=== PATIENT | male | born 1945 | race African-American/Black ===

== ENCOUNTER 2022-03-23 21:52 | Inpatient (IN) ==
[2022-03-23] MEDS ORDERED: SODIUM CHLORIDE 0.9% 500 ML IV STA (22:17)
[2022-03-23 23:22] LABS: Bilirubin,Total 0.7 MG/DL (0.20-1.00); Calcium 9.4 MG/DL (8.5-10.1); Osmolality,Calculated 285.1 MOS/KG (273-304); Potassium 4.6 MMOL/L (3.5-5.1); Total Protein 7.3 G/DL (6.4-8.2)
[2022-03-24 00:20] LABS: Bilirubin,Urine Negative (Negative); Blood, Urine Small mg/dL (Negative); Glucose,Urine (UA) Negative (Negative); Ketones,Urine Negative (Negative); Mucus,Urine Occasional /LPF (Occasional); Nitrite,Urine Negative (Negative); Protein,Urine 100 mg/dL (Negative); RBC,Urine 1 /HPF (0-4); Squamous Epithelial Cell,Urine Occasional /HPF (0-10); Urine Appearance Clear (Clear); Urine Color Yellow (Yellow); Urine Specific Gravity 1.025 (1.001-1.035)
[2022-03-24] MEDS ORDERED: SODIUM CHLORIDE 0.9% 1,000 ML IV STA (00:20)
[2022-03-24 00:21] LABS: Urine Urobilinogen 0.2 eU/dL (<2.0)
[2022-03-24 00:38] LABS: Basophils # 0.1 10*3/uL (0.0-0.2); Basophils % 0.5 % (0.0-0.8); Eosinophils % 0.1 % (0.00-10.9); Hematocrit 31.4 VOL% (42.0-52.0); Hemoglobin 10.2 GM/DL (14.0-18.0); Immature Granulocytes % 1.7 %; Immature Granulocytes Absolute 0.22 #; Lymphocytes # 1.4 10*3/uL (1.4-4.0); Lymphocytes % 10.6 % (21.2-54.2); Mean Corpuscular HGB Conc 32.5 GM/DL (32-36); Mean Corpuscular Volume 99.1 FL (87-102); Mean Platelet Volume 12.5 FL (9.6-12.0); Monocytes # 1.3 10*3/uL (0.11-0.8); Monocytes % 9.8 % (1.7-12.7); Neutrophils % 77.3 % (38.7-73.9); Platelet Count 157 T/CUMM (130-400); Red Blood Count 3.17 MC/CUMM (3.8-5.5); White Blood Count 12.9 T/CUMM (4-12)
[2022-03-24] MEDS ORDERED: ENOXAPARIN 100 MG/ML SYRINGE SUBCUT STA (01:09)
[2022-03-24] MEDS ORDERED: ONDANSETRON 4 MG/2 ML VIAL IV PRN (02:44)
[2022-03-24] MEDS ORDERED: ACETAMINOPHEN 325 MG TABLET PO PRN (02:44)
[2022-03-24] MEDS: SODIUM CHLORIDE 0.9% 1,000 ML IV SCH ×2 (03:30→17:53)
[2022-03-24 05:11] LABS: Risk Ratio 2.26; VLDL Cholesterol 18.2 MG/DL
[2022-03-24] MEDS: PANTOPRAZOLE 40 MG TABLET PO SCH (11:06)
[2022-03-24] MEDS: DOCUSATE SODIUM 100 MG CAPSULE PO SCH ×2 (11:06→21:37)
[2022-03-24] MEDS: ASPIRIN EC 81 MG TABLET PO SCH (17:51)
[2022-03-24] MEDS ORDERED: methylPREDNISolone SOD SUC 40 MG/1 ML VIAL IV SCH (23:00)
[2022-03-24] MEDS: AZITHROMYCIN INJ 500 MG in SODIUM CHLORIDE 0.9% 250 ML IV SCH (23:21)
[2022-03-25] MEDS: cefTRIAXone 1,000 MG in SODIUM CHLORIDE 0.9% 100 ML IV SCH (02:19)
[2022-03-25] MEDS: ENOXAPARIN 100 MG/ML SYRINGE SUBCUT SCH (02:20)
[2022-03-25] MEDS: SODIUM CHLORIDE 0.9% 1,000 ML IV SCH ×2 (04:20→16:14)
[2022-03-25 06:31] LABS: Basophils # 0.1 10*3/uL (0.0-0.2); Basophils % 0.6 % (0.0-0.8); Eosinophils # 0.1 10*3/uL (0.0-0.87); Eosinophils % 0.6 % (0.00-10.9); Immature Granulocytes % 0.4 %; Immature Granulocytes Absolute 0.03 #; Lymphocytes # 1.5 10*3/uL (1.4-4.0); Lymphocytes % 18.8 % (21.2-54.2); Mean Corpuscular HGB Conc 32.4 GM/DL (32-36); Mean Corpuscular Volume 99.1 FL (87-102); Mean Platelet Volume 12.7 FL (9.6-12.0); Monocytes # 0.3 10*3/uL (0.11-0.8); Monocytes % 3.4 % (1.7-12.7); Neutrophils % 76.2 % (38.7-73.9); Platelet Count 162 T/CUMM (130-400); Red Blood Count 3.43 MC/CUMM (3.8-5.5); Red Cell Distribution Width 14.2 % (9.3-17.3); White Blood Count 8.2 T/CUMM (4-12)
[2022-03-25 06:44] LABS: Albumin 3.2 G/DL (3.4-5.0); Bilirubin,Total 0.4 MG/DL (0.20-1.00); Calcium 8.9 MG/DL (8.5-10.1); Osmolality,Calculated 282.5 MOS/KG (273-304); Potassium 4.5 MMOL/L (3.5-5.1); Total Protein 6.8 G/DL (6.4-8.2)
[2022-03-25] MEDS ORDERED: amLODIPine 5 MG TABLET PO SCH (09:00)
[2022-03-25] MEDS: amLODIPine 10 MG TABLET PO SCH (11:36)
[2022-03-25] MEDS: DOCUSATE SODIUM 100 MG CAPSULE PO SCH ×2 (11:36→21:23)
[2022-03-25] MEDS: carvediloL 12.5 MG TABLET PO SCH ×3 (11:36→21:23)
[2022-03-25] MEDS: ASPIRIN EC 81 MG TABLET PO SCH (11:36)
[2022-03-25] MEDS: PANTOPRAZOLE 40 MG TABLET PO SCH (11:36)
[2022-03-25] MEDS: methylPREDNISolone SOD SUC 40 MG/1 ML VIAL IV SCH ×2 (11:37→16:15)
[2022-03-25] MEDS: ROSUVASTATIN 20 MG TABLET PO SCH (12:48)
[2022-03-25] MEDS: FENOFIBRATE 160 MG TABLET PO SCH (12:48)
[2022-03-25] MEDS: BENZONATATE 100 MG CAPSULE PO SCH (21:23)
[2022-03-26] MEDS: AZITHROMYCIN INJ 500 MG in SODIUM CHLORIDE 0.9% 250 ML IV SCH ×2 (00:13→22:55)
[2022-03-26] MEDS: SODIUM CHLORIDE 0.9% 1,000 ML IV SCH ×3 (00:14→20:56)
[2022-03-26] MEDS: methylPREDNISolone SOD SUC 40 MG/1 ML VIAL IV SCH ×2 (00:15→09:10)
[2022-03-26] MEDS: ENOXAPARIN 100 MG/ML SYRINGE SUBCUT SCH (02:15)
[2022-03-26] MEDS: cefTRIAXone 1,000 MG in SODIUM CHLORIDE 0.9% 100 ML IV SCH (02:15)
[2022-03-26 05:48] LABS: Basophils % 0.1 % (0.0-0.8); Hematocrit 33.5 VOL% (42.0-52.0); Hemoglobin 10.8 GM/DL (14.0-18.0); Immature Granulocytes % 0.8 %; Immature Granulocytes Absolute 0.17 #; Lymphocytes # 1.9 10*3/uL (1.4-4.0); Lymphocytes % 8.9 % (21.2-54.2); Mean Corpuscular HGB Conc 32.2 GM/DL (32-36); Mean Corpuscular Volume 97.7 FL (87-102); Mean Platelet Volume 12.2 FL (9.6-12.0); Monocytes # 0.7 10*3/uL (0.11-0.8); Monocytes % 3.4 % (1.7-12.7); Neutrophils % 86.8 % (38.7-73.9); Platelet Count 165 T/CUMM (130-400); Red Blood Count 3.43 MC/CUMM (3.8-5.5); Red Cell Distribution Width 13.8 % (9.3-17.3); White Blood Count 21.2 T/CUMM (4-12)
[2022-03-26 05:56] LABS: Calcium 8.4 MG/DL (8.5-10.1); Osmolality,Calculated 289.1 MOS/KG (273-304); Potassium 4.3 MMOL/L (3.5-5.1)
[2022-03-26 06:28] LABS: Lymphocytes 3 % (20-55); Platelet Estimate Adequate; Total Cells Counted 100
[2022-03-26] MEDS: FENOFIBRATE 160 MG TABLET PO SCH (09:10)
[2022-03-26] MEDS: PANTOPRAZOLE 40 MG TABLET PO SCH (09:10)
[2022-03-26] MEDS: ASPIRIN EC 81 MG TABLET PO SCH (09:10)
[2022-03-26] MEDS: DOCUSATE SODIUM 100 MG CAPSULE PO SCH ×2 (09:10→20:55)
[2022-03-26] MEDS: amLODIPine 10 MG TABLET PO SCH (09:10)
[2022-03-26] MEDS: ROSUVASTATIN 20 MG TABLET PO SCH (09:10)
[2022-03-26] MEDS: carvediloL 12.5 MG TABLET PO SCH ×2 (09:10→20:55)
[2022-03-26] MEDS: BENZONATATE 100 MG CAPSULE PO SCH ×3 (09:10→20:55)
[2022-03-26] MEDS: FLUTICASONE 50 MCG NASAL SPRAY 16 GM BOTTLE BOTH NARES SCH (09:34)
[2022-03-26] MEDS ORDERED: methylPREDNISolone SOD SUC 40 MG/1 ML VIAL IV SCH (17:00)
[2022-03-26] MEDS: TAMSULOSIN 0.4 MG CAPSULE PO SCH (20:55)
[2022-03-27] MEDS: cefTRIAXone 1,000 MG in SODIUM CHLORIDE 0.9% 100 ML IV SCH (01:31)
[2022-03-27] MEDS: ENOXAPARIN 100 MG/ML SYRINGE SUBCUT SCH (01:32)
[2022-03-27] MEDS: methylPREDNISolone SOD SUC 40 MG/1 ML VIAL IV SCH ×2 (05:12→17:00)
[2022-03-27 06:09] LABS: Basophils % 0.1 % (0.0-0.8); Eosinophils % 0.1 % (0.00-10.9); Hematocrit 31.4 VOL% (42.0-52.0); Immature Granulocytes % 0.4 %; Immature Granulocytes Absolute 0.08 #; Lymphocytes % 10.2 % (21.2-54.2); Mean Corpuscular HGB Conc 31.8 GM/DL (32-36); Mean Corpuscular Volume 98.1 FL (87-102); Mean Platelet Volume 12.6 FL (9.6-12.0); Monocytes # 0.8 10*3/uL (0.11-0.8); Monocytes % 4.1 % (1.7-12.7); Neutrophils % 85.1 % (38.7-73.9); Platelet Count 155 T/CUMM (130-400); Red Cell Distribution Width 13.9 % (9.3-17.3); White Blood Count 19.4 T/CUMM (4-12)
[2022-03-27 06:27] LABS: Calcium 8.1 MG/DL (8.5-10.1); Potassium 4.2 MMOL/L (3.5-5.1)
[2022-03-27 06:43] LABS: Anisocytosis 1+; Band Neutrophils 7 % (0-10); Burr Cells Few; Lymphocytes 10 % (20-55); Platelet Estimate Normal; Total Cells Counted 100
[2022-03-27 06:44] LABS: Macrocytosis Slight
[2022-03-27] MEDS: DOCUSATE SODIUM 100 MG CAPSULE PO SCH ×2 (08:11→20:25)
[2022-03-27] MEDS: carvediloL 12.5 MG TABLET PO SCH ×2 (08:11→20:25)
[2022-03-27] MEDS: FENOFIBRATE 160 MG TABLET PO SCH (08:11)
[2022-03-27] MEDS: PANTOPRAZOLE 40 MG TABLET PO SCH (08:11)
[2022-03-27] MEDS: ASPIRIN EC 81 MG TABLET PO SCH (08:11)
[2022-03-27] MEDS: ROSUVASTATIN 20 MG TABLET PO SCH (08:11)
[2022-03-27] MEDS: amLODIPine 10 MG TABLET PO SCH (08:11)
[2022-03-27] MEDS: BENZONATATE 100 MG CAPSULE PO SCH ×3 (08:12→20:25)
[2022-03-27] MEDS: FLUTICASONE 50 MCG NASAL SPRAY 16 GM BOTTLE BOTH NARES SCH (10:15)
[2022-03-27] MEDS: SODIUM CHLORIDE 0.9% 1,000 ML IV SCH ×4 (10:15→22:08)
[2022-03-27] MEDS: TAMSULOSIN 0.4 MG CAPSULE PO SCH (20:25)
[2022-03-27] MEDS: AZITHROMYCIN INJ 500 MG in SODIUM CHLORIDE 0.9% 250 ML IV SCH (22:08)
[2022-03-28] MEDS: SODIUM CHLORIDE 0.9% 1,000 ML IV SCH ×2 (01:33→17:44)
[2022-03-28] MEDS: cefTRIAXone 1,000 MG in SODIUM CHLORIDE 0.9% 100 ML IV SCH (01:34)
[2022-03-28] MEDS: ENOXAPARIN 100 MG/ML SYRINGE SUBCUT SCH (01:34)
[2022-03-28] MEDS: methylPREDNISolone SOD SUC 40 MG/1 ML VIAL IV SCH ×2 (05:04→17:43)
[2022-03-28 05:26] LABS: Basophils % 0.2 % (0.0-0.8); Hematocrit 31.9 VOL% (42.0-52.0); Hemoglobin 10.3 GM/DL (14.0-18.0); Immature Granulocytes % 1.6 %; Immature Granulocytes Absolute 0.24 #; Lymphocytes # 2.2 10*3/uL (1.4-4.0); Lymphocytes % 14.8 % (21.2-54.2); Mean Corpuscular HGB Conc 32.3 GM/DL (32-36); Mean Corpuscular Volume 96.4 FL (87-102); Monocytes # 0.8 10*3/uL (0.11-0.8); Neutrophils % 78.4 % (38.7-73.9); Platelet Count 151 T/CUMM (130-400); Red Blood Count 3.31 MC/CUMM (3.8-5.5); Red Cell Distribution Width 13.9 % (9.3-17.3)
[2022-03-28 05:27] LABS: Calcium 7.8 MG/DL (8.5-10.1); Osmolality,Calculated 295.6 MOS/KG (273-304)
[2022-03-28] MEDS: BENZONATATE 100 MG CAPSULE PO SCH ×3 (09:06→20:41)
[2022-03-28] MEDS: carvediloL 12.5 MG TABLET PO SCH ×2 (09:06→20:41)
[2022-03-28] MEDS: ROSUVASTATIN 20 MG TABLET PO SCH (09:06)
[2022-03-28] MEDS: ASPIRIN EC 81 MG TABLET PO SCH (09:06)
[2022-03-28] MEDS: DOCUSATE SODIUM 100 MG CAPSULE PO SCH ×2 (09:06→20:41)
[2022-03-28] MEDS: PANTOPRAZOLE 40 MG TABLET PO SCH (09:06)
[2022-03-28] MEDS: FENOFIBRATE 160 MG TABLET PO SCH (09:06)
[2022-03-28] MEDS: amLODIPine 10 MG TABLET PO SCH (09:06)
[2022-03-28] MEDS: FLUTICASONE 50 MCG NASAL SPRAY 16 GM BOTTLE BOTH NARES SCH (09:35)
[2022-03-28] MEDS: TAMSULOSIN 0.4 MG CAPSULE PO SCH (20:41)
[2022-03-28] MEDS: AZITHROMYCIN INJ 500 MG in SODIUM CHLORIDE 0.9% 250 ML IV SCH (22:31)
[2022-03-29] MEDS: cefTRIAXone 1,000 MG in SODIUM CHLORIDE 0.9% 100 ML IV SCH (01:14)
[2022-03-29] MEDS: ENOXAPARIN 100 MG/ML SYRINGE SUBCUT SCH (01:16)
[2022-03-29 04:16] LABS: Basophils % 0.3 % (0.0-0.8); Eosinophils % 0.1 % (0.00-10.9); Hematocrit 32.6 VOL% (42.0-52.0); Hemoglobin 10.8 GM/DL (14.0-18.0); Immature Granulocytes % 2.1 %; Immature Granulocytes Absolute 0.29 #; Lymphocytes # 2.3 10*3/uL (1.4-4.0); Lymphocytes % 16.1 % (21.2-54.2); Mean Corpuscular HGB Conc 33.1 GM/DL (32-36); Mean Corpuscular Volume 95.3 FL (87-102); Mean Platelet Volume 12.6 FL (9.6-12.0); Monocytes # 0.7 10*3/uL (0.11-0.8); Monocytes % 4.6 % (1.7-12.7); NRBC # 0.03 10*3/uL; Neutrophils % 76.8 % (38.7-73.9); Platelet Count 160 T/CUMM (130-400); Red Blood Count 3.42 MC/CUMM (3.8-5.5); White Blood Count 14.1 T/CUMM (4-12)
[2022-03-29 04:32] LABS: Calcium 8.4 MG/DL (8.5-10.1); Osmolality,Calculated 293.7 MOS/KG (273-304)
[2022-03-29] MEDS: methylPREDNISolone SOD SUC 40 MG/1 ML VIAL IV SCH ×2 (05:10→17:06)
[2022-03-29] MEDS: BENZONATATE 100 MG CAPSULE PO SCH ×3 (09:09→21:13)
[2022-03-29] MEDS: DOCUSATE SODIUM 100 MG CAPSULE PO SCH ×2 (09:09→21:13)
[2022-03-29] MEDS: carvediloL 12.5 MG TABLET PO SCH ×2 (09:09→21:13)
[2022-03-29] MEDS: FENOFIBRATE 160 MG TABLET PO SCH (09:09)
[2022-03-29] MEDS: amLODIPine 10 MG TABLET PO SCH (09:09)
[2022-03-29] MEDS: ASPIRIN EC 81 MG TABLET PO SCH (09:09)
[2022-03-29] MEDS: PANTOPRAZOLE 40 MG TABLET PO SCH (09:09)
[2022-03-29] MEDS: ROSUVASTATIN 20 MG TABLET PO SCH (09:09)
[2022-03-29] MEDS: FLUTICASONE 50 MCG NASAL SPRAY 16 GM BOTTLE BOTH NARES SCH (09:11)
[2022-03-29] MEDS: SODIUM CHLORIDE 0.9% 1,000 ML IV SCH (15:07)
[2022-03-29] MEDS: TAMSULOSIN 0.4 MG CAPSULE PO SCH (21:13)
[2022-03-29] MEDS: AZITHROMYCIN INJ 500 MG in SODIUM CHLORIDE 0.9% 250 ML IV SCH (22:32)
[2022-03-30] MEDS: ENOXAPARIN 100 MG/ML SYRINGE SUBCUT SCH (03:21)
[2022-03-30] MEDS: cefTRIAXone 1,000 MG in SODIUM CHLORIDE 0.9% 100 ML IV SCH (03:22)
[2022-03-30 05:28] LABS: Basophils % 0.3 % (0.0-0.8); Eosinophils % 0.1 % (0.00-10.9); Hematocrit 34.1 VOL% (42.0-52.0); Hemoglobin 11.1 GM/DL (14.0-18.0); Immature Granulocytes % 3.2 %; Immature Granulocytes Absolute 0.46 #; Lymphocytes # 2.7 10*3/uL (1.4-4.0); Lymphocytes % 19.2 % (21.2-54.2); Mean Corpuscular HGB Conc 32.6 GM/DL (32-36); Mean Corpuscular Volume 96.6 FL (87-102); Mean Platelet Volume 12.9 FL (9.6-12.0); Monocytes # 0.8 10*3/uL (0.11-0.8); Monocytes % 5.4 % (1.7-12.7); NRBC # 0.04 10*3/uL; Neutrophils % 71.8 % (38.7-73.9); Platelet Count 160 T/CUMM (130-400); Red Blood Count 3.53 MC/CUMM (3.8-5.5); Red Cell Distribution Width 13.7 % (9.3-17.3); White Blood Count 14.3 T/CUMM (4-12)
[2022-03-30] MEDS: methylPREDNISolone SOD SUC 40 MG/1 ML VIAL IV SCH (05:48)
[2022-03-30 05:55] LABS: Calcium 8.7 MG/DL (8.5-10.1); Potassium 4.2 MMOL/L (3.5-5.1)
[2022-03-30] MEDS: SODIUM CHLORIDE 0.9% 1,000 ML IV SCH (06:13)
[2022-03-30] MEDS: amLODIPine 10 MG TABLET PO SCH (08:53)
[2022-03-30] MEDS: PANTOPRAZOLE 40 MG TABLET PO SCH (08:53)
[2022-03-30] MEDS: ROSUVASTATIN 20 MG TABLET PO SCH (08:53)
[2022-03-30] MEDS: DOCUSATE SODIUM 100 MG CAPSULE PO SCH (08:53)
[2022-03-30] MEDS: ASPIRIN EC 81 MG TABLET PO SCH (08:53)
[2022-03-30] MEDS: BENZONATATE 100 MG CAPSULE PO SCH ×2 (08:53→15:51)
[2022-03-30] MEDS: carvediloL 12.5 MG TABLET PO SCH (08:53)
[2022-03-30] MEDS: FENOFIBRATE 160 MG TABLET PO SCH (08:53)
[2022-03-30] MEDS: FLUTICASONE 50 MCG NASAL SPRAY 16 GM BOTTLE BOTH NARES SCH (11:54)
[2022-03-30 12:22] VITALS: BP 128/59
== END 2022-03-30 16:45 | DRG 178 ==
LOC: N.TELEN 21:52 → N.ED 21:52 → N.TELEN 03-24 02:40
PROVIDERS: ADMIT Internal Medicine; ATTEND Internal Medicine